=== PATIENT | female | born 1960 | race Two or more races ===

== ENCOUNTER 2017-10-25 10:05 | Emergency (ER) | payer OTHER ==
[2017-10-25] MEDS ORDERED: SODIUM CHLORIDE 0.9% 1,000 ML IV STA (10:26)
[2017-10-25] MEDS ORDERED: KETOROLAC 30 MG/ML 1 ML VIAL IVP STA ×2 (10:26→13:12)
--- NOTE | 2017-10-25 10:37 | ED ---
Arrhythmia/Palpitations HPI - General Chief Complaint: Arrhythmia/Palpitations Stated Complaint: Chest pain Time Seen by Provider: 10/25/17 10:16 Source: patient, RN notes reviewed Mode of arrival: wheelchair Limitations: no limitations - History of Present Illness Initial Comments: This is a 57-year-old female who presents with complaints of palpitations and chest pain is started around 5 AM this morning she took a Tylenol around 6 AM and a quarter of a 0.25 Xanax at 7:30 AM without any relief she states she has pain to the left side of her neck and left jaw 78/10 severity she rates all the pain does get worse with certain movements. She denies any cough fevers chills nausea vomiting sweats she states when she pushes on the portion of her jaw anterior to the ear does feel better. She denies any dental problems however. No trauma in the last couple days but she did fall oxalate to 3 weeks ago and sustaining a right navicular bone fracture she had no other pain at that time. She also did have an MRI last week of the right upper extremity. No cough or phlegm production fevers chills sweats no rhinorrhea. MD Complaint: palpitations - Related Data Home Medications Medication Instructions Recorded Confirmed Acetaminophen [Tylenol] 325 mg PO Q6H PRN 07/16/15 10/25/17 Cyanocobalamin [Vitamin B-12] 1,000 mcg PO Q48H 07/16/15 10/25/17 Esomeprazole Magnesium [NexIUM] 40 mg PO DAILY 07/16/15 10/25/17 Ferrous Sulfate [Feosol] 325 mg PO Q48H 07/16/15 10/25/17 Ascorbic Acid [Vitamin C] 1,000 mg PO DAILY 10/25/17 10/25/17 Calcium/Magnesium/Zinc 1 tab PO DAILY 10/25/17 10/25/17 [Fzhqzvl-Fefpfxqll-Fhyt Tablet] Cholecalciferol (Vitamin D3) 2,000 unit PO DAILY 10/25/17 10/25/17 [Vitamin D3] Magnesium 200 mg PO DAILY 10/25/17 10/25/17 Metoprolol Tartrate [Lopressor] 25 mg PO DAILY 10/25/17 10/25/17 Multivitamins, Thera [Multivitamin 1 tab PO BID 10/25/17 10/25/17 (formulary)] Previous Rx's Medication Instructions Recorded Orphenadrine [Norflex] 100 mg PO Q12H #7 tablet.er 10/25/17 guaiFENesin [Mucinex] 600 mg PO Q12HR #14 tablet.er 10/25/17 Allergies Allergy/AdvReac Type Severity Reaction Status Date / Time amoxicillin Allergy Unknown Rash/Hives, Verified 10/25/17 10:32 Nausea, Swelling ampicillin Allergy Unknown Rash/Hives, Verified 10/25/17 10:32 Nausea, Swelling cheese Allergy Unknown Abdominal Verified 10/25/17 10:32 Pain codeine Allergy Unknown Abdominal Verified 10/25/17 10:32 Pain erythromycin base Allergy Unknown Abdominal Verified 10/25/17 10:32 Pain, Nausea and Vomiting lactose Allergy Unknown Abdominal Verified 10/25/17 10:32 Pain Penicillins Allergy Unknown Rash/Hives, Verified 10/25/17 10:32 Nausea, Swelling Sulfa (Sulfonamide Allergy Unknown Rash/Hives Verified 10/25/17 10:32 Antibiotics) Review of Systems ROS Statement: Those systems with pertinent positive or pertinent negative responses have been documented in the HPI. ROS Other: All systems not noted in ROS Statement are negative. Past Medical History Past Medical History: Fibromyalgia, GERD/Reflux, Hypertension, Sleep Apnea/CPAP/ BIPAP Additional Past Medical History / Comment(s): USES C-PAP MACHINE, OCCASIONAL SWELLING LOWER EXTREMITIES, ANEMIC, BACK PROBLEMS, STATES ACNE ON FACE AND HEAD. , DIARRHEA, BORDERLINE DIABETES. History of Any Multi-Drug Resistant Organisms: None Reported Past Surgical History: Appendectomy, Bariatric Surgery, Section, Cholecystectomy, Orthopedic Surgery, Uterine Ablation Additional Past Surgical History / Comment(s): BROCK KNEE ARTHROSCOPY, EGD. Past Anesthesia/Blood Transfusion Reactions: Previous Problems w/ Anesthesia Additional Past Anesthesia/Blood Transfusion Reaction / Comment(s): DIFFICULTY WAKING UP. Past Psychological History: Panic Disorder Smoking Status: Former smoker Past Alcohol Use History: Occasional Past Drug Use History: None Reported - Past Family History Mother Family Medical History: No Reported History General Exam - General Exam Comments Initial Comments: This is a well-developed well-nourished awake alert oriented 3 female Limitations: no limitations General appearance: alert, anxious Head exam: Present: atraumatic, normocephalic, normal inspection Eye exam: Present: normal appearance, PERRL, EOMI. Absent: scleral icterus, conjunctival injection, periorbital swelling ENT exam: Present: mucous membranes moist, normal external ear exam ( Examination a type membranes demonstrates fluid behind both membranes especially on the left no erythema however), other (Tenderness palpation over the left preauricular region no palpable masses no step-off or crepitation the tenderness is over the TMJ region. Dentition is intact) Neck exam: Present: normal inspection, tenderness (Tennis palpation of the lateral neck musculature with no step-off or crepitation no stridor JVD or bruits), full ROM. Absent: meningismus, lymphadenopathy Respiratory exam: Present: normal lung sounds bilaterally, chest wall tenderness (Reproducible tenderness palpation along the left costal sternal costochondral margin this does reproduce the tenderness the patient complains of.). Absent: respiratory distress, wheezes, rales, rhonchi, stridor Cardiovascular Exam: Present: regular rate, normal rhythm, normal heart sounds. Absent: systolic murmur, diastolic murmur, rubs, gallop, clicks GI/Abdominal exam: Present: soft, normal bowel sounds. Absent: distended, tenderness, guarding, rebound, rigid Extremities exam: Present: normal capillary refill, other (Patient does have a green colored short arm cast on her right upper extremity no sensory or motor or vascular deficits are noted.). Absent: tenderness, pedal edema, joint swelling, calf tenderness Back exam: Present: normal inspection Neurological exam: Present: alert, oriented X3, CN II-XII intact Psychiatric exam: Present: normal affect, normal mood Skin exam: Present: warm, dry, intact, normal color. Absent: rash Course Vital Signs 10/25/17 10/25/17 10/25/17 10:08 10:22 12:15 Temperature 97.4 F L 97.6 F Pulse Rate 94 101 H 63 Respiratory 18 18 18 Rate Blood Pressure 143/74 133/76 O2 Sat by Pulse 98 98 100 Oximetry EKG Findings - EKG Results: EKG: interpreted by KRISTY, sinus rhythm (Sinus rhythm rate of 101. Interval to 10 QRS duration 90 QT since QTC 368/477 evidence of a first-degree AV block left anterior fascicular block and poor R-wave progression. This is compared to an EKG dated 09/29/08 which shows similar configuration.) Medical Decision Making - Medical Decision Making The patient is feeling improved at this time I did discuss the findings with her the presentation is consistent with musculoskeletal chest pain she does recall sitting in the backseat of a small vehicle in the same position for a long period time yesterday. She believes this does correlate with the physical findings she presents with today he has however also states that her ear she'll plugged up and as stated the evaluation is appear consistent with fluid behind the membranes. She will be instructed to go on muscle relaxers as well as Mucinex [id number]. She cannot take nonsteroidal anti-inflammatories due to previous history of GI bleeding from oral medications she'll continue with Tylenol. - Lab Data Result diagrams: 10/25/17 10:20 10/25/17 10:20 Lab Results 10/25/17 10/25/17 10/25/17 Range/Units 10:20 10:20 10:20 WBC 11.4 H (3.8-10.6) k/uL RBC 5.05 (3.80-5.40) m/uL Hgb 14.3 (11.4-16.0) gm/dL Hct 46.6 H (34.0-46.0) % MCV 92.2 (80.0-100.0) fL MCH 28.3 (25.0-35.0) pg MCHC 30.7 L (31.0-37.0) g/dL RDW 12.5 (11.5-15.5) % Plt Count 312 (150-450) k/uL Neutrophils % 71 % Lymphocytes % 23 % Monocytes % 4 % Eosinophils % 1 % Basophils % 0 % Neutrophils # 8.1 H (1.3-7.7) k/uL Lymphocytes # 2.6 (1.0-4.8) k/uL Monocytes # 0.4 (0-1.0) k/uL Eosinophils # 0.1 (0-0.7) k/uL Basophils # 0.0 (0-0.2) k/uL PT (9.0-12.0) sec INR (<1.2) APTT (22.0-30.0) sec Sodium 144 (137-145) mmol/L Potassium 4.2 (3.5-5.1) mmol/L Chloride 107 (98-107) mmol/L Carbon Dioxide 25 (22-30) mmol/L Anion Gap 12 mmol/L BUN 15 (7-17) mg/dL Creatinine 0.79 (0.52-1.04) mg/dL Est GFR (MDRD) Af Amer >60 (>60 ml/min/1.73 sqM) Est GFR (MDRD) Non-Af >60 (>60 ml/min/1.73 sqM) Glucose 105 H (74-99) mg/dL Calcium 10.3 H (8.4-10.2) mg/dL Magnesium 2.0 (1.6-2.3) mg/dL Total Bilirubin 0.8 (0.2-1.3) mg/dL AST 27 (14-36) U/L ALT 48 (9-52) U/L Alkaline Phosphatase 119 (38-126) U/L Total Creatine Kinase 92 (30-135) U/L CK-MB (CK-2) 0.8 (0.0-2.4) ng/mL CK-MB (CK-2) Rel Index 0.9 Troponin I <0.012 (0.000-0.034) ng/mL Total Protein 7.5 (6.3-8.2) g/dL Albumin 4.6 (3.5-5.0) g/dL 10/25/17 Range/Units 10:20 WBC (3.8-10.6) k/uL RBC (3.80-5.40) m/uL Hgb (11.4-16.0) gm/dL Hct (34.0-46.0) % MCV (80.0-100.0) fL MCH (25.0-35.0) pg MCHC (31.0-37.0) g/dL RDW (11.5-15.5) % Plt Count (150-450) k/uL Neutrophils % % Lymphocytes % % Monocytes % % Eosinophils % % Basophils % % Neutrophils # (1.3-7.7) k/uL Lymphocytes # (1.0-4.8) k/uL Monocytes # (0-1.0) k/uL Eosinophils # (0-0.7) k/uL Basophils # (0-0.2) k/uL PT 10.6 (9.0-12.0) sec INR 1.1 (<1.2) APTT 23.2 (22.0-30.0) sec Sodium (137-145) mmol/L Potassium (3.5-5.1) mmol/L Chloride (98-107) mmol/L Carbon Dioxide (22-30) mmol/L Anion Gap mmol/L BUN (7-17) mg/dL Creatinine (0.52-1.04) mg/dL Est GFR (MDRD) Af Amer (>60 ml/min/1.73 sqM) Est GFR (MDRD) Non-Af (>60 ml/min/1.73 sqM) Glucose (74-99) mg/dL Calcium (8.4-10.2) mg/dL Magnesium (1.6-2.3) mg/dL Total Bilirubin (0.2-1.3) mg/dL AST (14-36) U/L ALT (9-52) U/L Alkaline Phosphatase (38-126) U/L Total Creatine Kinase (30-135) U/L CK-MB (CK-2) (0.0-2.4) ng/mL CK-MB (CK-2) Rel Index Troponin I (0.000-0.034) ng/mL Total Protein (6.3-8.2) g/dL Albumin (3.5-5.0) g/dL - Radiology Data Radiology results: report reviewed (I did review the imaging and reports no acute findings.), image reviewed Disposition Clinical Impression: Musculoskeletal pain, Costochondritis, Serous otitis media Disposition: HOME SELF-CARE Condition: Good Instructions: Palpitations (ED), Costochondritis (ED), Musculoskeletal Pain (ED ), Serous Otitis Media (ED) Prescriptions: guaiFENesin [Mucinex] 600 mg PO Q12HR #14 tablet.er Orphenadrine [Norflex] 100 mg PO Q12H #7 tablet.er Referrals: Jordan Tena MD [Primary Care Provider] - 1-2 days
[2017-10-25 10:44] LABS: Basophils % (A) 0 %; Eosinophils # (A) 0.1 k/uL (0-0.7); Eosinophils % (A) 1 %; HCT 46.6 % (34.0-46.0); HGB 14.3 gm/dL (11.4-16.0); Lymphocytes # (A) 2.6 k/uL (1.0-4.8); Lymphocytes % (A) 23 %; MCH 28.3 pg (25.0-35.0); MCHC 30.7 g/dL (31.0-37.0); MCV 92.2 fL (80.0-100.0); Mean Platelet Volume 6.3; Monocytes # (A) 0.4 k/uL (0-1.0); Monocytes % (A) 4 %; Neutrophils # (A) 8.1 k/uL (1.3-7.7); Neutrophils % (A) 71 %; Platelet Count 312 k/uL (150-450); RBC 5.05 m/uL (3.80-5.40); RDW 12.5 % (11.5-15.5); WBC 11.4 k/uL (3.8-10.6)
[2017-10-25 10:58] LABS: ALT 48 U/L (9-52); AST 27 U/L (14-36); Albumin 4.6 g/dL (3.5-5.0); Alkaline Phosphatase 119 U/L (38-126); Anion Gap 12 mmol/L; Blood Urea Nitrogen 15 mg/dL (7-17); Calcium 10.3 mg/dL (8.4-10.2); Carbon Dioxide 25 mmol/L (22-30); Chloride 107 mmol/L (98-107); Glucose 105 mg/dL (74-99); Potassium 4.2 mmol/L (3.5-5.1); Sodium 144 mmol/L (137-145); Total Bilirubin 0.8 mg/dL (0.2-1.3); Total Protein 7.5 g/dL (6.3-8.2)
--- NOTE | 2017-10-25 10:58 | XR ---
EXAMINATION TYPE: XR chest 2V DATE OF EXAM ORDERED: 10/25/2017 HISTORY: dysrhythmia. REFERENCE: None. FINDINGS: The lungs are clear. Pleural spaces are clear. Heart size is normal. IMPRESSION: NORMAL CHEST.
[2017-10-25 11:08] LABS: Creatine Kinase 92 U/L (30-135)
[2017-10-25 11:21] LABS: Creatine Kinase MB 0.8 ng/mL (0.0-2.4); Troponin I <0.012 ng/mL (0.000-0.034)
[2017-10-25 11:34] LABS: INR 1.1 (<1.2)
[2017-10-25 11:38] LABS: Prothrombin Time 10.6 sec (9.0-12.0)
[2017-10-25 11:39] LABS: Partial Thromboplastin Time 23.2 sec (22.0-30.0)
[2017-10-25 12:20] VITALS: TEMP 97.6
[2017-10-25 13:28] VITALS: BP 120/68
[2017-10-25 13:44] VITALS: PULSE 74; RESP 16
== END 2017-10-25 13:44 | disposition home or self-care (01) ==
LOC: EC 10:05
DX: M94.0 Chondrocostal junction syndrome [Tietze] (principal); H65.93 Unspecified nonsuppurative otitis media, bilateral; K21.9 Gastro-esophageal reflux disease without esophagitis; I10 Essential (primary) hypertension; G47.30 Sleep apnea, unspecified; E11.9 Type 2 diabetes mellitus without complications; Z87.891 Personal history of nicotine dependence; Z99.89 Dependence on other enabling machines and devices; Z79.899 Other long term (current) drug therapy; Z88.0 Allergy status to penicillin; Z88.1 Allergy status to other antibiotic agents; Z88.2 Allergy status to sulfonamides; Z88.5 Allergy status to narcotic agent; Z88.6 Allergy status to analgesic agent; Z91.011 Allergy to milk products
CPT/HCPCS: 36415; 93005; 80053; 82550; 82553; 83735; 84484; 85025; 85610; 85730; 71046; 99285; 96374; 96376; 96361 ×3; J1885

== ENCOUNTER 2019-04-04 17:10 | Emergency (ER) | payer OTHER ==
[2019-04-04 17:18] VITALS: RESP 18; TEMP 98
[2019-04-04] MEDS ORDERED: ACETAMINOPHEN TAB 500 MG TAB PO STA (17:31)
--- NOTE | 2019-04-04 17:33 | ED ---
General Adult HPI - General Chief complaint: Extremity Injury, Lower Stated complaint: rt foot injury Time Seen by Provider: 04/04/19 17:26 Source: patient Mode of arrival: ambulatory Limitations: no limitations - History of Present Illness Initial comments: Patient is a 58-year-old female presenting to emergency Department with a chief complaint of right foot pain. Patient reports she attempted to kick a chair which she thought it was plastic but instead it was metal. Patient reports pain along the second through fifth MTP joints as well as midfoot tenderness. Patient reports limited range of motion in her toes but denies any numbness or tingling. Patient denies any erythema or skin discoloration patient does report mild edema in the MTP joints. Patient denies taking any [id number] medications to alleviate the symptoms. - Related Data Home Medications Medication Instructions Recorded Confirmed Cyanocobalamin [Vitamin B-12] 1,000 mcg PO Q48H 07/16/15 04/04/19 Esomeprazole Magnesium [NexIUM] 40 mg PO DAILY 07/16/15 04/04/19 Ferrous Sulfate [Feosol] 325 mg PO HS 07/16/15 04/04/19 Ascorbic Acid [Vitamin C] 1,000 mg PO DAILY 10/25/17 04/04/19 Calcium/Magnesium/Zinc 1 tab PO DAILY 10/25/17 04/04/19 [Obrmdwg-Ofqekwuzr-Moan Tablet] Cholecalciferol (Vitamin D3) 2,000 unit PO DAILY 10/25/17 04/04/19 [Vitamin D3] Magnesium 200 mg PO DAILY 10/25/17 04/04/19 Multivitamins, Thera [Multivitamin 1 tab PO BID 10/25/17 04/04/19 (formulary)] Bacillus Coagulans/Inulin 1 cap PO DAILY 04/04/19 04/04/19 [Probiotic with Prebiotic Cap] Metoprolol Tartrate [Lopressor] 12.5 mg PO DAILY 04/04/19 04/04/19 Allergies Allergy/AdvReac Type Severity Reaction Status Date / Time amoxicillin Allergy Unknown Rash/Hives, Verified 04/04/19 17:49 Nausea, Swelling ampicillin Allergy Unknown Rash/Hives, Verified 04/04/19 17:49 Nausea, Swelling cheese Allergy Unknown Abdominal Verified 04/04/19 17:49 Pain codeine Allergy Unknown Abdominal Verified 04/04/19 17:49 Pain erythromycin base Allergy Unknown Abdominal Verified 04/04/19 17:49 Pain, Nausea and Vomiting lactose Allergy Unknown Abdominal Verified 04/04/19 17:49 Pain Penicillins Allergy Unknown Rash/Hives, Verified 04/04/19 17:49 Nausea, Swelling Sulfa (Sulfonamide Allergy Unknown Rash/Hives Verified 04/04/19 17:49 Antibiotics) Review of Systems ROS Statement: Those systems with pertinent positive or pertinent negative responses have been documented in the HPI. ROS Other: All systems not noted in ROS Statement are negative. Past Medical History Past Medical History: Fibromyalgia, GERD/Reflux, Hypertension, Sleep Apnea/CPAP/BIPAP Additional Past Medical History / Comment(s): USES C-PAP MACHINE, OCCASIONAL SWELLING LOWER EXTREMITIES, ANEMIC, BACK PROBLEMS, STATES ACNE ON FACE AND HEAD., DIARRHEA, BORDERLINE DIABETES. History of Any Multi-Drug Resistant Organisms: None Reported Past Surgical History: Appendectomy, Bariatric Surgery, Section, Cholecystectomy, Orthopedic Surgery, Uterine Ablation Additional Past Surgical History / Comment(s): BROCK KNEE ARTHROSCOPY, EGD. Past Anesthesia/Blood Transfusion Reactions: Previous Problems w/ Anesthesia Additional Past Anesthesia/Blood Transfusion Reaction / Comment(s): DIFFICULTY WAKING UP. Past Psychological History: Panic Disorder Smoking Status: Former smoker Past Alcohol Use History: Occasional Past Drug Use History: None Reported - Past Family History Mother Family Medical History: No Reported History General Exam Limitations: no limitations General appearance: alert, in no apparent distress Head exam: Present: atraumatic, normocephalic, normal inspection Eye exam: Present: normal appearance, PERRL, EOMI Pupils: Present: normal accommodation ENT exam: Present: normal exam, mucous membranes moist, normal external ear exam Neck exam: Present: normal inspection, full ROM Respiratory exam: Present: normal lung sounds bilaterally Cardiovascular Exam: Present: regular rate, normal rhythm, normal heart sounds Extremities exam: Present: full ROM (Limited range of motion on the right toes), tenderness (Midfoot tenderness and tenderness along the second through fifth MTP joints), normal capillary refill, other (+2 ulnar and radial pulses bilaterally +2 dorsalis pedis and posterior tibialis bilaterally). Absent: normal inspection (Mild midfoot edema as well as along the second through fifth MTP joints of the right foot. No erythema or skin discoloration. No abrasions or lacerations.), calf tenderness Back exam: Present: normal inspection, full ROM Neurological exam: Present: alert, oriented X3 Psychiatric exam: Present: normal affect, normal mood Skin exam: Present: warm, intact, normal color Course Vital Signs 04/04/19 17:15 Temperature 98.0 F Pulse Rate 80 Respiratory 18 Rate Blood Pressure 135/85 O2 Sat by Pulse 98 Oximetry Medical Decision Making - Medical Decision Making Patient is a 58-year-old female presenting to emergency Department with right foot pain. X-ray of the right foot is negative for acute radiographic processes. There is a well corticated 2 mm venkat of bone at the proximal pha cameron of the fifth toe however it was also present on previous imaging. Patient does appear to have tenderness in the region so patient is going to be treated as a possible fracture. Patient given a postop shoe. Patient advised to follow-up with medical claims specialist. Patient advised to alternate between Tylenol and ibuprofen for pain control. Patient advised to apply cold compress to minimize symptoms. Patient advised to return to emergency department if symptoms worsen. Strict return parameters were thoroughly discussed patient was understanding and agreeable. Case discussed with physician. Disposition Clinical Impression: Foot pain, right Disposition: HOME SELF-CARE Condition: Stable Instructions (If sedation given, give patient instructions): Foot Sprain (ED) Additional Instructions: Please follow-up with medical claims specialist. Apply cold compress to minimize symptoms. Alternate between Tylenol and ibuprofen for pain control. Please return to emergency department symptoms worsen. Is patient prescribed a controlled substance at d/c from ED?: No Referrals: Jordan Tena MD [Primary Care Provider] - 1-2 days Gabriel Edward MD [Medical Doctor] - 1-2 days Time of Disposition: 19:07
--- NOTE | 2019-04-04 18:44 | XR ---
PROCEDURE: XR foot complete RT - 3V DATE AND TIME: 04/04/2019 5:41 PM CLINICAL INDICATION: PHH; Pain after injury. TECHNIQUE: Department protocol COMPARISON: None FINDINGS: At the medial base of the proximal phalanx fifth toe there is a well-corticated 2 mm venkat of bone. This appears to represent a prior injury, unless correlation for point tenderness is present . There is no other candidate for fracture or malalignment. The soft tissues are unremarkable. IMPRESSION: No definite acute radiographic process, as above.
[2019-04-04 19:30] VITALS: BP 148/78; PULSE 79
== END 2019-04-04 19:26 | disposition home or self-care (01) ==
LOC: EC 17:10
DX: M79.671 Pain in right foot (principal); R60.0 Localized edema; K21.9 Gastro-esophageal reflux disease without esophagitis; I10 Essential (primary) hypertension; D64.9 Anemia, unspecified; G47.30 Sleep apnea, unspecified; Z87.891 Personal history of nicotine dependence; Z88.0 Allergy status to penicillin; Z88.1 Allergy status to other antibiotic agents; Z88.2 Allergy status to sulfonamides; Z88.5 Allergy status to narcotic agent; Z91.018 Allergy to other foods; Z79.899 Other long term (current) drug therapy; Z99.89 Dependence on other enabling machines and devices; W22.8XXA Striking against or struck by other objects, initial encounter
CPT/HCPCS: 99283

== ENCOUNTER 2022-09-06 15:25 | Emergency (ER) | payer OTHER ==
--- NOTE | 2022-09-06 15:30 | ED ---
General Adult HPI - General Stated complaint: Muscle spasm Time Seen by Provider: 09/06/22 15:30 - History of Present Illness Initial comments: Dictation was produced using [employer] dictation software. please excuse any grammatical, word or spelling errors. Medical screening exam: 62-year-old female brought in by EMS from urgent care. Patient presents today with several hours of neck pain. She states that her neck pain is described as spasms throughout her whole posterior cervical spine. She states that after the spasms she would have symptoms of presyncope, nausea and vomiting. Patient has been feeling mildly faint. She does have history of musculoskeletal pain. She reports that her pain symptoms rated down her bilateral upper extremities. Denies any trauma to the neck. Denies any loss of bowel or bladder function. She feels weak throughout her whole body including her upper and lower extremities. Denies any neurologic symptoms in her lower extremity bilaterally. Dictation was produced using [employer] dictation software. please excuse any grammatical, word or spelling errors. Chief Complaint: 62-year-old female past medical history fibromyalgia, chronic neck pain occurs compensation presents to the ER for severe neck spasms History of Present Illness: Patient's 62-year-old female she has chronic neck pain. Patient states that she is having severe neck spasms. Her last several days she states that her spasms are so severe causes her to feel lightheaded. States that whenever she tries to move her arms and any certain direction she has significant pain. Patient denies fever, chills or night sweats. Denies any lower extremity symptoms. Patient presented to us from EMS. Daughter at the bedside reports that patient's had something similar like this in the past. She has responded well to Flexeril. Denies any fever or constitutional symptoms. The ROS documented in this emergency department record has been reviewed and confirmed by me. Those systems with pertinent positive or negative responses have been documented in the HPI. All other systems are other negative and/or noncontributory. PHYSICAL EXAM: General Impression: Alert and oriented x3, acute distress secondary to pain HEENT: Normocephalic atraumatic, extra-ocular movements intact, pupils equal and reactive to light bilaterally, mucous membranes moist, Palpatory tenderness at the bilateral trapezius and soft tissues of the cervical spine. Patient complains of stiffness with head turning to both sides. Cardiovascular: Heart regular rate and rhythm Chest: Able to complete full sentences, no retractions, no tachypnea Abdomen: abdomen soft, non-tender, non-distended, no organomegaly Musculoskeletal: Pulses present and equal in all extremities, no peripheral edema Motor: no focal deficits noted Neurological: CN II-XII grossly intact, no focal motor or sensory deficits not ed, negative Brudzinski's, negative Kernig's, negative limits Skin: Intact with no visualized rashes Psych: Normal affect and mood ED course: 62-year-old female presents emergency Department with clinical presentation consistent with acute on chronic neck pain. Vital Signs upon arrival are afebrile and within acceptable limits. Physical examination shows normal mentation. Nursing notes and chart review was performed Laboratory evaluation obtained CBC and metabolic panel is unremarkable. Co mputed tomography scan of the C-spine and head shows no acute processes. Patient given dose of Valium and analgesics. Patient reevaluated at bedside 11:07 PM found to be stable medical condition. Disposition options were discussed. Patient's agreeable for discharge with outpatient referral to pain management and muscle relaxants. Was pt. sent in by a medical professional or institution (, PA, [employer] BUILDER APPRENTICE, urgent care, hospital, or fdc...) When possible be specific @ -No Did you speak to anyone other than the patient for history (EMS, parent, family, police, friend...)? What history was obtained from this source @ -EMS Did you review nursing and triage notes (agree or disagree)? Why? @ -I reviewed and agree with nursing and triage notes Were old charts reviewed (outside hosp., previous admission, EMS record, old EKG, old radiological studies, urgent care reports/EKG's, fdc records)? Report findings @ -No old charts were reviewed Differential Diagnosis (chest pain, altered mental status, abdominal pain women, abdominal pain men, vaginal bleeding, weakness, fever, dyspnea, syncope, headache, dizziness, GI bleed, back pain, seizure, CVA, palpatations, mental health)? @ -not applicable EKG interpreted by me (3pts min.). @ -As above X-rays interpreted by me (1pt min.). @ -None done CT interpreted by me (1pt min.). @ -See above U/S interpreted by me (1pt. min.). @ -None done What testing was considered but not performed or refused? (CT, X-rays, U/S, labs)? Why? @ -None What meds were considered but not given or refused? Why? @ -None Did you discuss the management of the patient with other professionals (mo khan i.e. , PA, [employer] BUILDER APPRENTICE, lab, RT, psych nurse, dialysis social worker, gold reclaimer, teacher, conservation officer, case supervisor)? Give summary @ -No Was smoking cessation discussed for >3mins.? @ -No Was critical care preformed (if so, how long)? @ -No Were there social determinants of health that impacted care today? How? (Homelessness, low income, unemployed, alcoholism, drug addiction, transportati on, low edu. Level, literacy, decrease access to med. care, senior living, rehab)? @ -No Was there de-escalation of care discussed even if they declined (Discuss DNR or withdrawal of care, Hospice)? DNR status @ -No What co-morbidities impacted this encounter? (DM, HTN, Smoking, COPD, CAD, Cancer, CVA, ARF, Chemo, Hep., AIDS, mental health diagnosis, sleep apnea, morbid obesity)? @ -None Was patient admitted / discharged? Hospital course, mention meds given and route, prescriptions, significant lab abnormalities, going to OR and other pertinent info. @ -See above Undiagnosed new problem with uncertain prognosis? @ -No Drug Therapy requiring intensive monitoring for toxicity (Heparin, Nitro, Insulin, Cardizem)? @ -No Were any procedures done? @ -No Diagnosis/symptom? @ -Acute on chronic cervical muscle spasms Acute, or Chronic, or Acute on Chronic? @ -Acute on chronic Uncomplicated (without systemic symptoms) or Complicated (systemic symptoms)? @ -Uncomplicated Side effects of treatment? @ -No Exacerbation, Progression, or Severe Exacerbation? @ -No Poses a threat to life or bodily function? How? (Chest pain, [place], [place], pneumonia, PE, COPD, DKA, ARF, appy, cholecystitis, CVA, Diverticulitis, Homicidal, Suicidal, threat to staff... and all critical care pts) @ -No - Related Data Home Medications Medication Instructions Recorded Confirmed Esomeprazole Magnesium [NexIUM] 40 mg PO DAILY 07/16/15 09/06/22 Ascorbic Acid [Vitamin C] 1,000 mg PO DAILY 10/25/17 09/06/22 Calcium/Magnesium/Zinc 1 tab PO DAILY 10/25/17 09/06/22 [Sfjgyqv-Rcrdiqjcl-Glhl Tablet] Cholecalciferol (Vitamin D3) 2,000 unit PO DAILY 10/25/17 09/06/22 [Vitamin D3] Bacillus Coagulans/Inulin 1 cap PO DAILY 04/04/19 09/06/22 [Probiotic with Prebiotic Cap] Metoprolol Tartrate [Lopressor] 25 mg PO DAILY 04/04/19 09/06/22 Biotin 5 mg PO DAILY 09/06/22 09/06/22 Elderberry Fruit and Flower [Black 1 cap PO DAILY 09/06/22 09/06/22 Elderberry 575 mg Cap] Previous Rx's Medication Instructions Recorded methocarbamoL [Robaxin] 1,000 mg PO QID PRN #24 tab 09/06/22 Allergies Allergy/AdvReac Type Severity Reaction Status Date / Time amoxicillin Allergy Unknown Rash/Hives, Verified 09/06/22 21:46 Nausea, Swelling ampicillin Allergy Unknown Rash/Hives, Verified 09/06/22 21:46 Nausea, Swelling cheese Allergy Unknown Abdominal Verified 09/06/22 21:46 Pain codeine Allergy Unknown Abdominal Verified 09/06/22 21:46 Pain erythromycin base Allergy Unknown Abdominal Verified 09/06/22 21:46 Pain, Nausea and Vomiting lactose Allergy Unknown Abdominal Verified 09/06/22 21:46 Pain Penicillins Allergy Unknown Rash/Hives, Verified 09/06/22 21:46 Nausea, Swelling Sulfa (Sulfonamide Allergy Unknown Rash/Hives Verified 09/06/22 21:46 Antibiotics) Review of Systems ROS Statement: Those systems with pertinent positive or pertinent negative responses have been documented in the HPI. ROS Other: All systems not noted in ROS Statement are negative. Past Medical History Past Medical History: Fibromyalgia, GERD/Reflux, Hypertension, Sleep Apnea/CPAP/BIPAP Additional Past Medical History / Comment(s): USES C-PAP MACHINE, OCCASIONAL SWELLING LOWER EXTREMITIES, ANEMIC, BACK PROBLEMS, STATES ACNE ON FACE AND HEAD., DIARRHEA, BORDERLINE DIABETES. History of Any Multi-Drug Resistant Organisms: None Reported Past Surgical History: Appendectomy, Bariatric Surgery, Section, Cholecystectomy, Orthopedic Surgery, Uterine Ablation Additional Past Surgical History / Comment(s): BROCK KNEE ARTHROSCOPY, EGD. Past Anesthesia/Blood Transfusion Reactions: Previous Problems w/ Anesthesia Additional Past Anesthesia/Blood Transfusion Reaction / Comment(s): DIFFICULTY WAKING UP. Past Psychological History: Panic Disorder Past Alcohol Use History: Occasional Past Drug Use History: None Reported - Past Family History Mother Family Medical History: No Reported History Course Vital Signs 09/06/22 09/06/22 09/06/22 15:28 15:52 20:40 Temperature 974 F H Pulse Rate 79 93 Respiratory 20 16 Rate Blood Pressure 138/70 126/79 127/79 O2 Sat by Pulse 100 98 99 Oximetry 09/06/22 09/07/22 21:01 00:00 Temperature Pulse Rate 102 H 87 Respiratory 12 18 Rate Blood Pressure 126/64 126/72 O2 Sat by Pulse 94 L 98 Oximetry Medical Decision Making - Lab Data Result diagrams: 09/06/22 15:51 09/06/22 15:51 Lab Results 09/06/22 09/06/22 09/06/22 Range/Units 15:51 15:51 15:51 WBC 12.7 H (3.8-10.6) k/uL RBC 4.71 (3.80-5.40) m/uL Hgb 13.8 (11.4-16.0) gm/dL Hct 41.8 (34.0-46.0) % MCV 88.9 (80.0-100.0) fL MCH 29.3 (25.0-35.0) pg MCHC 33.0 (31.0-37.0) g/dL RDW 12.4 (11.5-15.5) % Plt Count 294 (150-450) k/uL MPV 7.2 Neutrophils % 76 % Lymphocytes % 16 % Monocytes % 4 % Eosinophils % 1 % Basophils % 1 % Neutrophils # 9.7 H (1.3-7.7) k/uL Lymphocytes # 2.1 (1.0-4.8) k/uL Monocytes # 0.5 (0-1.0) k/uL Eosinophils # 0.1 (0-0.7) k/uL Basophils # 0.1 (0-0.2) k/uL PT 10.1 (9.0-12.0) sec INR 0.9 (<1.2) APTT 24.5 (22.0-30.0) sec Sodium 140 (137-145) mmol/L Potassium 4.1 (3.5-5.1) mmol/L Chloride 104 (98-107) mmol/L Carbon Dioxide 28 (22-30) mmol/L Anion Gap 8 mmol/L BUN 14 (7-17) mg/dL Creatinine 0.78 (0.52-1.04) mg/dL Est GFR (CKD-EPI)AfAm >90 (>60 ml/min/1.73 sqM) Est GFR (CKD-EPI)NonAf 82 (>60 ml/min/1.73 sqM) Glucose 93 (74-99) mg/dL Calcium 9.4 (8.4-10.2) mg/dL Magnesium 1.7 (1.6-2.3) mg/dL Total Bilirubin 0.6 (0.2-1.3) mg/dL AST 33 (14-36) U/L ALT 46 H (4-34) U/L Alkaline Phosphatase 143 H (38-126) U/L Total Protein 7.3 (6.3-8.2) g/dL Albumin 4.4 (3.5-5.0) g/dL Disposition Clinical Impression: Cervical paraspinal muscle spasm Disposition: HOME SELF-CARE Condition: Good Instructions (If sedation given, give patient instructions): Muscle Spasm (ED) Prescriptions: methocarbamoL [Robaxin] 1,000 mg PO QID PRN #24 tab PRN Reason: Muscle Spasm Is patient prescribed a controlled substance at d/c from ED?: No Referrals: Phil Barrera MD [STAFF PHYSICIAN] - 1-2 days Time of Disposition: 23:10
[2022-09-06 15:31] VITALS: TEMP 974
[2022-09-06 16:17] LABS: Basophils # (A) 0.1 k/uL (0-0.2); Basophils % (A) 1 %; Eosinophils # (A) 0.1 k/uL (0-0.7); Eosinophils % (A) 1 %; HCT 41.8 % (34.0-46.0); HGB 13.8 gm/dL (11.4-16.0); Lymphocytes # (A) 2.1 k/uL (1.0-4.8); Lymphocytes % (A) 16 %; MCH 29.3 pg (25.0-35.0); MCV 88.9 fL (80.0-100.0); Mean Platelet Volume 7.2; Monocytes # (A) 0.5 k/uL (0-1.0); Monocytes % (A) 4 %; Neutrophils # (A) 9.7 k/uL (1.3-7.7); Neutrophils % (A) 76 %; Platelet Count 294 k/uL (150-450); RBC 4.71 m/uL (3.80-5.40); RDW 12.4 % (11.5-15.5); WBC 12.7 k/uL (3.8-10.6)
[2022-09-06 16:26] LABS: INR 0.9 (<1.2); Partial Thromboplastin Time 24.5 sec (22.0-30.0); Prothrombin Time 10.1 sec (9.0-12.0)
[2022-09-06 16:28] LABS: ALT 46 U/L (4-34); AST 33 U/L (14-36); African American GFR (CKD) >90 (>60 ml/min/1.73 sqM); Albumin 4.4 g/dL (3.5-5.0); Alkaline Phosphatase 143 U/L (38-126); Anion Gap 8 mmol/L; Blood Urea Nitrogen 14 mg/dL (7-17); Calcium 9.4 mg/dL (8.4-10.2); Carbon Dioxide 28 mmol/L (22-30); Chloride 104 mmol/L (98-107); Glucose 93 mg/dL (74-99); Magnesium 1.7 mg/dL (1.6-2.3); Non-African American GFR(CKD) 82 (>60 ml/min/1.73 sqM); Potassium 4.1 mmol/L (3.5-5.1); Sodium 140 mmol/L (137-145); Total Bilirubin 0.6 mg/dL (0.2-1.3); Total Protein 7.3 g/dL (6.3-8.2)
[2022-09-06] MEDS ORDERED: MORPHINE SULFATE 4 MG/ML SYRINGE IV STA (20:34)
--- NOTE | 2022-09-06 21:50 | CT ---
EXAMINATION TYPE: CT brain asadine wo con DATE OF EXAM: 09/06/2022 COMPARISON: None HISTORY: weakness and neck pain. CT DLP: 1499.2 mGycm Automated exposure control for dose reduction was used. Images obtained of the brain and cervical spine with no contrast. The ventricles have normal size. There is no mass effect or midline shift. No sign of intracranial he morrhage. Calvarium is intact. There is normal aeration of the mastoid sinuses. No evidence of cerebr al edema. The cervical vertebra have normal spacing and alignment. Posterior elements are intact. There is mini mal anterior spurring at C6-7. Facet joints are intact. No compression fracture. No subluxation. IMPRESSION: Negative CT scan of the cervical spine. Negative CT scan of the brain.
[2022-09-07 00:07] VITALS: BP 126/72; PULSE 87; RESP 18
== END 2022-09-07 00:06 | disposition home or self-care (01) ==
LOC: EC 15:25
DX: G89.29 Other chronic pain (principal); M62.838 Other muscle spasm; I10 Essential (primary) hypertension; K21.9 Gastro-esophageal reflux disease without esophagitis; G47.30 Sleep apnea, unspecified; Z88.0 Allergy status to penicillin; Z88.1 Allergy status to other antibiotic agents; Z88.2 Allergy status to sulfonamides; Z88.8 Allergy status to other drugs, medicaments and biological substances; Z79.899 Other long term (current) drug therapy
CPT/HCPCS: 99285; 96374; 96375; 36415; 93005; 80053; 83735; 85025; 85610; 85730; 72125; 70450; J2270; J3360

== ENCOUNTER → 2023-02-24 | Outpatient (CLI) | payer OTHER ==
--- NOTE | 2023-02-24 22:51 | MR ---
EXAMINATION TYPE: MR shoulder RT wo con DATE OF EXAM: 02/24/2023 10:38 PM COMPARISON: NONE HISTORY: Rt shoulder pain TECHNIQUE: Multiplanar multispin echo imaging of the right shoulder was performed. FINDINGS: Rotator cuff : Moderate thickening of the supraspinatus tendon compatible with chronic tendinopathy. Intrasubstance partial tear noted at the critical zone. No evidence for full-thickness tear. Remainin g constituents of the rotator cuff are intact. Bursa: No bursal effusion or thickening is seen. Musculature: There is no muscular tear, contusion, or atrophy. Acromioclavicular joint : There are moderate degenerative changes of the acromioclavicular joint. Th ere is no anterior or lateral acromial downsloping. Osseous structures : Mild subchondral cyst formation greater tuberosity. There are no fractures or re gions of abnormal bone marrow signal intensity. Long biceps tendon : The biceps tendon is normally situated within the bicipital groove. No complete or partial biceps tendon tear is present. Glenohumeral Joint fluid : There is no glenohumeral joint effusion. Cartilage and Bone : No focal hyaline cartilage defects are noted. No Hill-Sachs, reverse Hill-Sachs, or bony Bankart lesions are seen. Labrum : There are no SLAP or soft tissue Bankart lesions. No paralabral cysts are seen. OTHER FINDINGS : none IMPRESSION: 1. Moderate thickening of the supraspinatus tendon compatible with chronic tendinopathy. Intrasubstan ce partial tear noted at the critical zone.
== END | disposition home or self-care (01) ==
LOC: RADMRIMAIN 02-20 06:09
PROVIDERS: ATTEND Orthopaedic Surgery
DX: M75.111 Incomplete rotator cuff tear or rupture of right shoulder, not specified as traumatic (principal)

== ENCOUNTER 2023-10-02 07:30 | Day surgery (SDC) | payer OTHER ==
[~2023-10-02 07:30] MED LIST: LACTATED RINGERS 1,000 ML IV SCH; LIDOCAINE 1% (10MG/ML) FOR IV START INTRADERMA PRN
[2023-10-02] MEDS: LACTATED RINGERS 1,000 ML IV ONE (07:51)
[2023-10-02 08:10] VITALS: TEMP 97.3
[2023-10-02] MEDS ORDERED: PROPOFOL 10 MG/ML 20 ML VIAL IV ONE (08:23)
[2023-10-02] MEDS ORDERED: LIDOCAINE 1% INJ 10MG/ML (20 ML MDV) ONE (08:23)
--- NOTE | 2023-10-02 09:02 | P.PCN ---
Date of Procedure: 10/02/23 Procedure(s) Performed: BRIEF HISTORY: Patient is a 63-year-old, pleasant, white female scheduled for an upper endoscopy as a part of evaluation of GERD and intermittent dysphagia to solids for the last 3 months duration. PROCEDURE PERFORMED: Esophagogastroduodenoscopy with biopsy. PREOPERATIVE DIAGNOSIS: GERD/intermittent dysphagia to solids. IV sedation per anesthesia. PROCEDURE: After informed consent was obtained, the patient was brought into the endoscopy unit. IV sedation was administered by Anesthesia under continuous monitoring. Initially the Olympus GIF-140 video endoscope was inserted into the mouth. Esophagus intubated without any difficulty. It was gradually advanced into the stomach and duodenum and carefully examined. The bulb and the second part of the duodenum appeared normal. The scope at this time was withdrawn to the stomach, adequately insufflated with air, and upon careful examination, mucosa of the antrum and gastritis and biopsies were done from this area., There was evidence of gastric sleeve surgery and the mucosa in the gastric body appeared normal. normal. The scope was then withdrawn into the esophagus. The hiatal hernia noted. The GE junction was located at 35 cm from the incisors. There were erosions and superficial ulcerations at the GE junction consistent with LA grade C reflux esophagitis. Rest of esophagus appeared normal and she tolerated the procedure well. IMPRESSION: 1. Linear erosions and ulcerations in the distal esophagus consistent with LA grade C reflux esophagitis. 2. Small hiatal hernia but no evidence of esophageal stricture. 3. Evidence of gastric sleeve surgery and mild antral gastritis. RECOMMENDATIONS: The findings of this examination were discussed with the patient as well as a family. She was advised to follow with the biopsies are loose. She'll be started on omeprazole 40 mg daily and was briefly educated about antireflux measures.. In office in 3 months.
[2023-10-02 09:13] VITALS: RESP 16
[2023-10-02 09:42] VITALS: BP 139/86; PULSE 61
== END 2023-10-02 10:00 ==
LOC: ORWHC2ENDO 07:30
PROVIDERS: ATTEND Internal Medicine Gastroenterology
DX: K29.50 Unspecified chronic gastritis without bleeding (principal); K22.10 Ulcer of esophagus without bleeding; K21.9 Gastro-esophageal reflux disease without esophagitis; K44.9 Diaphragmatic hernia without obstruction or gangrene; Z98.84 Bariatric surgery status; Z79.899 Other long term (current) drug therapy
CPT/HCPCS: 88305; 43239; J2001; J2704

== ENCOUNTER → 2024-05-24 | Outpatient (CLI) | payer OTHER ==
--- NOTE | 2024-05-25 00:22 | XR ---
EXAMINATION TYPE: XR shoulder limited RT DATE OF EXAM: 05/24/2024 COMPARISON: NONE HISTORY: Pain TECHNIQUE: Right Shoulder examined in 2 projections. FINDINGS: The humeral head articulates with the glenoid. The acromio-clavicular junction is normal. No acute fractures or dislocations are evident. A follow up study can be performed 7-10 days from acute trauma for continued pain. MRI can be perfor med if soft tissue evaluation would be of benefit. IMPRESSION: 1. No acute osseous shoulder abnormality right shoulder. [facility], , 05/25/2024 12:19 AM
--- NOTE | 2024-05-25 00:23 | XR ---
EXAMINATION TYPE: XR cervical spine comp DATE OF EXAM: 05/24/2024 COMPARISON: None HISTORY: Neck pain, fall 2020 TECHNIQUE: Cervical spine is examined in 5 views. FINDINGS: Prevertebral space is normal. Vertebral body alignment is preserved. Posterior spinal lamel lar line is intact. Disc heights are preserved. Vertebral body heights are preserved. There is moderate foraminal stenosis present C4-5 on the right. Some mild foraminal narrowing is pres ent C5-6 on the right. Left foramen appear patent. IMPRESSION: 1. Some right foraminal stenosis discussed above. MRI could further evaluate this finding. [facility], , 05/25/2024 12:21 AM
--- NOTE | 2024-05-25 00:24 | XR ---
EXAMINATION TYPE: XR knee limited LT DATE OF EXAM: 05/24/2024 COMPARISON: None HISTORY: Three-view left knee TECHNIQUE: 2 view left knee FINDINGS: There is loss the medial compartment joint space. Mild narrowing of the lateral compartment joint space is present. Median lateral tibial plateau and medial femoral condylar spurring is presen t. Patellofemoral degenerative changes are present. Posterior patellar spurring is present superiorly and inferiorly. Anterior superior patellar spur is present. No joint effusion is evident. IMPRESSION: 1. Moderate degenerative changes left knee [facility], , 05/25/2024 12:22 AM
--- NOTE | 2024-05-25 00:25 | XR ---
EXAMINATION TYPE: XR Hip Complete LT DATE OF EXAM: 05/24/2024 COMPARISON: None HISTORY: Chronic pain TECHNIQUE: 2 view left hip FINDINGS: Femoral head articulates with the acetabulum. Joint space is preserved. No acute fracture o r dislocation evident. Remaining osseous structures within the field of view appear unremarkable. IMPRESSION: 1. No acute osseous abnormality right hip. 2. No suspicious chronic changes. [facility], , 05/25/2024 12:23 AM
== END | disposition home or self-care (01) ==
LOC: RADXRMAIN 13:59
PROVIDERS: ATTEND Family Medicine
DX: M17.12 Unilateral primary osteoarthritis, left knee (principal); M48.02 Spinal stenosis, cervical region; M25.511 Pain in right shoulder; M25.552 Pain in left hip
CPT/HCPCS: 72050; 73502